=== PATIENT | female | born 1980 ===

== ENCOUNTER 2025-03-31 06:30 | Day surgery (SDC) | payer OTHER ==
[2025-03-28 11:12] VITALS: BP 125/83
[2025-03-28 11:39] LABS: COVID-19 AG NEGATIVE (NEGATIVE)
[~2025-03-31] VITALS: Ht 157.5 cm; Wt 68.0 kg
[2025-03-31] MEDS ORDERED: CEFAZOLIN SODIUM 1,000 MG VIAL ONE (08:25)
[2025-03-31] MEDS ORDERED: METRONIDAZOLE/SODIUM CHLORIDE 500 MG/100 ML PIGGYBACK IV ONE ×2 (08:25→12:15)
[2025-03-31] MEDS ORDERED: POVIDONE-IODINE 118 ML BOTT TOP ONE ×2 (11:29→12:15)
[2025-03-31] MEDS ORDERED: CEFAZOLIN SODIUM 1,000 MG VIAL IV ONE (12:15)
[2025-03-31] MEDS ORDERED: KETOROLAC TROMETHAMINE 30 MG VIAL IV STA (12:31)
[2025-03-31] MEDS ORDERED: KETOROLAC TROMETHAMINE 30 MG VIAL ONE (14:50)
[2025-03-31 18:14] VITALS: BP 117/50; O2SAT 100
== END 2025-03-31 18:00 | disposition home or self-care (01) ==
LOC: CIR.AMB 06:30
PROVIDERS: ATTEND Obstetrics & Gynecology Gynecologic Oncology
DX: N89.0 Mild vaginal dysplasia (principal)